=== PATIENT | female | born 2000 ===

== ENCOUNTER 2020-06-25 11:17 | Emergency (ER) | payer SELFPAY ==
[~2020-06-25] VITALS: Ht 157.5 cm; Wt 56.2 kg
[2020-06-25 11:24] VITALS: BP 132/62
[2020-06-25] MEDS ORDERED: KETOROLAC 30 MG/1 ML IM ONE (12:00)
[2020-06-25] MEDS ORDERED: CYCLOBENZAPRINE 10 MG TABLET PO ONE (12:00)
[2020-06-25] MEDS ORDERED: KETOROLAC 30 MG/1 ML ONE (13:08)
[2020-06-25] MEDS ORDERED: CYCLOBENZAPRINE 10 MG TABLET ONE (13:08)
--- NOTE | 2020-06-25 13:11 | NUR ---
NO ANSWER IN LOBBY
--- NOTE | 2020-06-25 13:20 | NUR ---
machine cutter: attempted to place pt in room from lobby, no answer in lobby
--- NOTE | 2020-06-25 13:29 | NUR ---
study assistant: attempted to move pt from lobby to room, unable to locate pt in lobby
== END 2020-06-25 13:52 | disposition left against medical advice (07) ==
LOC: ED 13:30
DX: M43.6 Torticollis (principal)
CPT/HCPCS: 99281